=== PATIENT | female | born 1990 | race Caucasian/White ===

== ENCOUNTER 2024-12-14 16:57 | Inpatient (IN) | payer BC ==
[2024-12-14] MEDS ORDERED: Nalbuphine 10 MG/1 ML Vial IVPUSH PRN (18:10)
[2024-12-14] MEDS ORDERED: Sodium Chloride 0.9% 10 ML Syringe FLUSH PRN (18:10)
[2024-12-14] MEDS ORDERED: Ondansetron 4 MG/2 ML SDV IVPUSH PRN (18:10)
[2024-12-14] MEDS ORDERED: Oxytocin/0.9 % Sodium Chloride 30 UNIT/500 ML BAG IV SCH (18:15)
[2024-12-14 18:30] LABS: BASOPHILS ABSOLUTE AUTO 0.0 K/mm3 (0.0-0.2); BASOPHILS PERCENT AUTO 0.3 % (0.0-1.0); EOSINOPHILS ABSOLUTE AUTO 0.0 K/mm3 (0.0-0.4); EOSINOPHILS PERCENT AUTO 0.1 % (0.0-6.0); IMMATURE GRAN ABSOLUTE AUTO 0.03 K/mm3 (0.00-0.05); IMMATURE GRAN PERCENT AUTO 0.3 % (0.0-0.4); LYMPHOCYTES ABSOLUTE AUTO 2.2 K/mm3 (1.0-4.8); LYMPHOCYTES PERCENT AUTO 23.6 % (24.0-44.0); MEAN PLATELET VOLUME 9.1 fl (9.4-12.3); MONOCYTES ABSOLUTE AUTO 0.6 K/mm3 (0.0-0.8); MONOCYTES PERCENT AUTO 6.2 % (0.0-8.0); NEUTROPHILS ABSOLUTE AUTO 6.4 K/mm3 (1.8-7.7); NEUTROPHILS PERCENT AUTO 69.5 % (41.0-71.0); NRBC ABSOLUTE 0.00 (0.00-0.02); NRBC PERCENT 0.0 % (0.0-0.2); PLATELET COUNT,PLT 325 K/mm3 (150-400); RED BLOOD CELL COUNT 4.07 M/mm3 (4.10-5.30); WHITE BLOOD CELL COUNT,WBC 9.17 K/mm3 (3.9-11.3)
[2024-12-14 19:07] LABS: ALANINE AMINOTRANSFERASE,ALT 31.0 U/L (14-59); ASPARTATE AMNIOTRANSFERASE,AST 31.0 U/L (15-37); BLOOD UREA NITROGEN,BUN 9.0 mg/dL (7-18); CREATININE 0.6 mg/dL (0.55-1.02); EST CRCL DRUG DOSING (CG) 116.24 mL/min; ESTIMATED GFR 122.0 mL/min (>60); LACTATE DEHYDROGENASE,LDH 144.0 U/L (81-234)
[2024-12-14] MEDS: Oxytocin/0.9 % Sodium Chloride 30 UNIT/500 ML BAG IV SCH (19:21)
[2024-12-14] MEDS: Lactated Ringers 1,000 ML IV SCH (19:21)
[2024-12-14] MEDS ORDERED: diphenhydrAMINE 50 MG/ML SDV IVPUSH PRN (19:58)
[2024-12-14] MEDS ORDERED: ePHEDrine 50 MG/ML SDV IVPUSH PRN (19:58)
[2024-12-14] MEDS: Ropivacaine 200 MG in Premix Bag 1 BAG EPIDUR PRN (20:27)
[2024-12-14 22:18] LABS: CREATININE,URINE RAND 42.8 mg/dL (30.0-125.0)
[2024-12-14 22:47] LABS: PROTEIN,URINE RANDOM < 6.0 mg/dL (0.0-11.8)
[2024-12-15] MEDS ORDERED: Oxytocin/0.9 % Sodium Chloride 30 UNIT/500 ML BAG IV SCH (02:40)
[2024-12-15] MEDS ORDERED: Magnesium Hydroxide 400 MG/5 ML Susp 30 ML Cup PO PRN (02:40)
[2024-12-15] MEDS: Witch Hazel Medicated Pads 40/Jar TOP PRN (04:30)
[2024-12-15] MEDS: Benzocaine/Menthol 20%-0.5% Spray 78 GM Cannister TOP PRN (04:31)
[2024-12-15] MEDS: Prenatal Multivitamin with Calcium/Folic Acid/Iron Tab PO SCH (08:40)
== END 2024-12-16 12:33 | disposition home or self-care (01) | DRG 560 ==
LOC: JD.OBCHECK 16:57 → JD.OB 17:00 → JD.OBCHECK 18:10 → JD.OB 18:10 → INTOOBSV 18:20 → OBSVTOIN 18:20 → JD.OB 12-15 00:56
PROVIDERS: ADMIT Obstetrics & Gynecology; ATTEND Obstetrics & Gynecology
PROC: 10E0XZZ Delivery of Products of Conception, External Approach (ICD-10-PCS; principal; 2024-12-15)
PROC: 4A1HXCZ Monitoring of Products of Conception, Cardiac Rate, External Approach (ICD-10-PCS; 2024-12-15)
PROC: 0KQM0ZZ Repair Perineum Muscle, Open Approach (ICD-10-PCS; 2024-12-15)
PROC: 0UQMXZZ Repair Vulva, External Approach (ICD-10-PCS; 2024-12-15)
PROC: 3E0R3BZ Introduction of Anesthetic Agent into Spinal Canal, Percutaneous Approach (ICD-10-PCS; 2024-12-15)
PROC: 00HU33Z Insertion of Infusion Device into Spinal Canal, Percutaneous Approach (ICD-10-PCS; 2024-12-15)
DX: O42.12 Full-term premature rupture of membranes, onset of labor more than 24 hours following rupture (principal); O34.219 Maternal care for unspecified type scar from previous cesarean delivery; Z3A.39 39 weeks gestation of pregnancy; Z37.0 Single live birth; O99.284 Endocrine, nutritional and metabolic diseases complicating childbirth; O70.1 Second degree perineal laceration during delivery; O70.0 First degree perineal laceration during delivery; E03.9 Hypothyroidism, unspecified; O69.81X0 Labor and delivery complicated by cord around neck, without compression, not applicable or unspecified; O77.0 Labor and delivery complicated by meconium in amniotic fluid
CPT/HCPCS: 36415; 51702; 59025; 59409; 82565; 82570; 83615; 84112; 84156; 84450; 84460; 84520; 84550; 85025; 86592; 86850; 86900; 86901; A9270-GY; J2795; J7120; J7999